=== PATIENT | female | born 1985 | race African-American/Black ===

== ENCOUNTER 2016-07-06 12:10 | Emergency (ER) | payer OTHER ==
[2016-07-06 12:17] VITALS: TEMP 99; BMI 27.6
--- NOTE | 2016-07-06 12:23 | PDOC ---
[id number] is a 31 year old female, with no significant past medical history, who presents to the emergency department with right lower quadrant pain and intermittent nausea for 3 days. She describes the pain as a tightness localized to her right lower quadrant. She denies radiation of pain. She states she usually gets a sharp, constant, cramp to her right lower abdomen before her menstrual cycle, however, this pain is more severe than her prior experiences with the pain. She states she has not eaten since Thursday secondary to nausea. She denies chest pain, shortness of breath, headache and dizziness. She denies fever, chills, vomit, diarrhea and constipation. She denies dysuria, frequency, urgency and hematuria. LMP: 06/27/16 Allergies:NKDA Past surgical history: denies Social history: Pt reports occasional tobacco and alcohol use. <Vernell Fuchs - Last Filed: 07/06/16 15:17> <Shawn Hernandez - Last Filed: 08/17/16 09:52> - General Chief Complaint: Pain Stated Complaint: ABD PAIN, VOMITING Time Seen by Provider: 07/06/16 12:22 Past History <Vernell Fuchs - Last Filed: 07/06/16 15:17> - Past Medical History Other medical history: NONE - Psycho/Social/Smoking Cessation Hx Anxiety: No Suicidal Ideation: No Smoking History: Current every day smoker Number of Cigarettes Smoked Daily: 2 Information on smoking cessation initiated: No Hx Alcohol Use: Yes (RARE) Drug/Substance Use Hx: No Substance Use Type: None <Shawn Hernandez - Last Filed: 08/17/16 09:52> - Past Medical History Allergies/Adverse Reactions: Allergies Allergy/AdvReac Type Severity Reaction Status Date / Time No Known Allergies Allergy Verified 07/06/16 12:17 Home Medications: Ambulatory Orders Ibuprofen 600 mg PO QID PRN #30 tablet 07/06/16 Ondansetron [Zofran *Odt*] 8 mg PO TID PRN #30 tab.rapdis 07/06/16 Ranitidine HCl [Zantac] 150 mg PO DAILY #14 tablet 07/06/16 Review of Systems - Review of Systems Able to Perform ROS?: Yes Comments:: 07/06/16 13:03 GENERAL/CONSTITUTIONAL: No fever or chills. No weakness. HEAD, EYES, EARS, NOSE AND THROAT: No change in vision. No ear pain or discharge. No sore throat. CARDIOVASCULAR: No chest pain or shortness of breath. RESPIRATORY: No cough, wheezing, or hemoptysis. GASTROINTESTINAL:(+) RLQ pain and nausea, No vomiting, diarrhea or constipation. GENITOURINARY: No dysuria, frequency, or change in urination. MUSCULOSKELETAL: No joint or muscle swelling or pain. No neck or back pain. SKIN: No rash NEUROLOGIC: No headache, vertigo, loss of consciousness, or change in strength/ sensation. ENDOCRINE: No increased thirst. No abnormal weight change. HEMATOLOGIC/LYMPHATIC: No anemia, easy bleeding, or history of blood clots. ALLERGIC/IMMUNOLOGIC: No hives or skin allergy. <Vernell Fuchs - Last Filed: 07/06/16 15:17> *Physical Exam - Vital Signs Last Vital Signs Temp Pulse Resp BP Pulse Ox 99.0 F 70 20 120/68 99 07/06/16 12:12 07/06/16 12:12 07/06/16 12:12 07/06/16 12:12 07/06/16 12:12 - Physical Exam Comments: 07/06/16 13:03 GENERAL: Awake, alert, and fully oriented, in no acute distress HEAD: No signs of trauma EYES: PERRLA, EOMI, sclera anicteric, conjunctiva clear ENT: Auricles normal inspection, hearing grossly normal, nares patent, oropharynx clear without exudates. Moist mucosa NECK: Normal ROM, supple, no lymphadenopathy, JVD, or masses LUNGS: Breath sounds equal, clear to auscultation bilaterally. No wheezes, and no crackles HEART: Regular rate and rhythm, normal S1 and S2, no murmurs, rubs or gallops ABDOMEN: (+) RLQ point tenderness to palpation. Soft, normoactive bowel sounds. No guarding, no rebound. No masses EXTREMITIES: Normal range of motion, no edema. No clubbing or cyanosis. No cords, erythema, or tenderness NEUROLOGICAL: Cranial nerves II through XII grossly intact. Normal speech, normal gait SKIN: Warm, Dry, normal turgor, no rashes or lesions noted. <Vernell Fuchs - Last Filed: 07/06/16 15:17> - Vital Signs Last Vital Signs Temp Pulse Resp BP Pulse Ox 99.0 F 70 20 120/68 99 07/06/16 12:12 07/06/16 12:12 07/06/16 12:12 07/06/16 12:12 07/06/16 12:12 <Shawn Hernandez - Last Filed: 08/17/16 09:52> ED Treatment Course - LABORATORY CBC & Chemistry Diagram: 07/06/16 12:50 07/06/16 12:50 - RADIOLOGY Radiograph Interpretation: 07/06/16 15:17 Transvaginal US was read by Dr. Buchanan at 1439 Impression: No right ovarian cyst is noted. 1.4 cm left ovarian cyst. Uterine leiomyomas <Vernell Fuchs - Last Filed: 07/06/16 15:17> - LABORATORY CBC & Chemistry Diagram: 07/06/16 12:50 07/06/16 12:50 <Shawn Hernandez - Last Filed: 08/17/16 09:52> Medical Decision Making - Medical Decision Making 07/06/16 13:05 The patient is a 31 year old female who presents with right lower quadrant pain and intermittent nausea for 3 days. I will obtain ultrasound, urinalysis, cbc, cmp to rule out ovarian cyst and appendicitis <Vernell Fuchs - Last Filed: 07/06/16 15:17> *DC/Admit/Observation/Transfer - Attestations Scribe Attestion: 07/06/16 13:03 Documentation prepared by Vernell Fuchs, acting as biomedical service engineer for Shawn Hernandez MD <Vernell Fuchs - Last Filed: 07/06/16 15:17> - Attestations Physician Attestion: 07/06/16 12:22 I, Dr. Shawn Hernandez, attest that this document has been prepared under my direction and personally reviewed by me in its entirety. I further attest, that it accurately reflects all work, treatment, procedures and medical decision -making performed by me. <Shawn Hernandez - Last Filed: 08/17/16 09:52> Diagnosis at time of Disposition: Nausea Abdominal pain Qualifiers: Abdominal location: right lower quadrant Qualified Code(s): R10.31 - Right lower quadrant pain Ovarian cyst Qualifiers: Laterality: left Qualified Code(s): N83.202 - Unspecified ovarian cyst, left side Leiomyoma of body of uterus Qualifiers: Uterine leiomyoma location: unspecified location Qualified Code(s): D25.9 - Leiomyoma of uterus, unspecified - Discharge Dispostion Disposition: HOME Condition at time of disposition: Good - Prescriptions Prescriptions: Ibuprofen 600 mg PO QID PRN #30 tablet PRN Reason: Pain Ranitidine HCl [Zantac] 150 mg PO DAILY #14 tablet Ondansetron [Zofran *Odt*] 8 mg PO TID PRN #30 tab.rapdis PRN Reason: Nausea - Patient Instructions Additional Instructions: At this time, your symptoms are likely to be related to a 1.4cm LEFT ovarian cyst or possibly fibroid of the uterus; beyond this, no acute findings are noted. Please follow up with your PMD within the next 48 hours and if there is any change otherwise in your symptoms, please return immediately to the ED.
[2016-07-06] MEDS ORDERED: ONDANSETRON *ODT* 4 MG TABLET SL ONE (13:00)
[2016-07-06] MEDS ORDERED: OXYCODONE/APAP 5/325MG COMBO TABLET PO ONE (13:00)
[2016-07-06] MEDS ORDERED: ONDANSETRON *ODT* 4 MG TABLET ONE (13:05)
[2016-07-06] MEDS ORDERED: OXYCODONE/APAP 5/325MG COMBO TABLET ONE (13:05)
[2016-07-06 13:16] LABS: BASOPHIL 0.5 % (0-2.0); EOSINOPHIL 0.5 % (0-4.5); MCH 31.3 pg (25.7-33.7); MCHC 33.5 g/dl (32.0-36.0); MEAN CELL VOLUME 93.4 fl (80-96); MEAN PLT VOLUME 9.9 fl (7.5-11.1); NEUTROPHILS 38.8 % (42.8-82.8); PLATELET COUNT 173 K/MM3 (134-434); RDW 12.3 % (11.6-15.6); WHITE BLOOD COUNT 3.1 K/mm3 (4.0-10.0)
[2016-07-06 13:28] LABS: INR 1.21 (0.82-1.09); PROTHROMBIN TIME (PATIENT) 13.4 SEC (9.98-11.88)
[2016-07-06 13:56] LABS: URINE APPEARANCE CLEAR; URINE BILIRUBIN NEGATIVE (NEGATIVE); URINE BLOOD NEGATIVE (NEGATIVE); URINE COLOR YELLOW; URINE GLUCOSE (UA) NEGATIVE (NEGATIVE); URINE KETONE TRACE (NEGATIVE); URINE LEUK ESTERASE NEGATIVE (NEGATIVE); URINE NITRITE NEGATIVE (NEGATIVE); URINE PROTEIN NEGATIVE (NEGATIVE); URINE UROBILINOGEN 4.0 E.U/dl E.U./dl (0.2-1.0)
[2016-07-06 14:12] LABS: ALBUMIN 3.9 g/dl (3.4-5.0); ALK PHOS 58 U/L (45-117); ANION GAP 8 (8-16); BILIRUBIN,TOTAL 0.4 mg/dL (0.2-1.0); CALCIUM 8.7 mg/dL (8.5-10.1); CO2 30 mmol/L (21-32); CREATININE 0.6 mg/dL (0.55-1.02); GLUCOSE,RANDOM 78 mg/dL (74-106); SGOT/AST 14 U/L (15-37); SGPT/ALT 20 U/L (12-78); TOT PROT 7.4 g/dl (6.4-8.2)
[2016-07-06 17:12] VITALS: BP 111/60; PULSE 63
--- NOTE | 2016-07-06 20:04 | PDOC ---
*Physical Exam - Vital Signs Last Vital Signs Temp Pulse Resp BP Pulse Ox 99.0 F 63 16 111/60 99 07/06/16 12:12 07/06/16 17:11 07/06/16 17:11 07/06/16 17:11 07/06/16 17:11 ED Treatment Course - LABORATORY CBC & Chemistry Diagram: 07/06/16 12:50 07/06/16 12:50 - ADDITIONAL ORDERS Additional order review: Laboratory Results 07/06/16 07/06/16 07/06/16 17:20 12:58 12:50 INR Sodium 142 Potassium 3.5 Chloride 104 Carbon Dioxide 30 Anion Gap 8 BUN 8 Creatinine 0.6 Creat Clearance w eGFR > 60 Random Glucose 78 Calcium 8.7 Total Bilirubin 0.4 AST 14 L ALT 20 Alkaline Phosphatase 58 Total Protein 7.4 Albumin 3.9 Serum , Qual Negative Urine Color Yellow Urine Appearance Clear Urine pH 6.0 Ur Specific [place] 1.024 Urine Protein Negative Urine Glucose (UA) Negative Urine Ketones Trace H Urine Blood Negative Urine Nitrite Negative Urine Bilirubin Negative Urine Urobilinogen 4.0 e.u/dl H Ur Leukocyte Esterase Negative 07/06/16 12:50 INR 1.21 H Sodium Potassium Chloride Carbon Dioxide Anion Gap BUN Creatinine Creat Clearance w eGFR Random Glucose Calcium Total Bilirubin AST ALT Alkaline Phosphatase Total Protein Albumin Serum , Qual Urine Color Urine Appearance Urine pH Ur Specific [place] Urine Protein Urine Glucose (UA) Urine Ketones Urine Blood Urine Nitrite Urine Bilirubin Urine Urobilinogen Ur Leukocyte Esterase 07/06/16 12:50 RBC 4.33 MCV 93.4 MCHC 33.5 RDW 12.3 MPV 9.9 Neutrophils % 38.8 L Lymphocytes % 44.2 H Monocytes % 16.0 H Eosinophils % 0.5 Basophils % 0.5 - Medications Given in the ED: ED Medications Discontinued Medications Generic Name Dose Route Start Last Admin Trade Name Freq PRN Reason Stop Dose Admin Ondansetron HCl 8 mg 07/06/16 13:00 07/06/16 13:05 Zofran Odt - SL 07/06/16 13:01 8 mg ONCE ONE Administration Oxycodone/Acetaminophen 2 combo 07/06/16 13:00 07/06/16 13:05 Percocet 5/325 - PO 07/06/16 13:01 2 combo ONCE ONE Administration Medical Decision Making - Medical Decision Making 07/06/16 20:03 The patient is received on sign out comfortable; CT shows no acute pathology and corroborates the findings of the US with fibroid and 1.4cm LEFT sided ovarian cyst. She is given analgesia, encouraged to follow up with the PMD within the next 24 hours. 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, I have also encouraged GI follow up for possible *DC/Admit/Observation/Transfer Diagnosis at time of Disposition: Nausea Abdominal pain Qualifiers: Abdominal location: right lower quadrant Qualified Code(s): R10.31 - Right lower quadrant pain Ovarian cyst Qualifiers: Laterality: left Qualified Code(s): N83.202 - Unspecified ovarian cyst, left side Leiomyoma of body of uterus Qualifiers: Uterine leiomyoma location: unspecified location Qualified Code(s): D25.9 - Leiomyoma of uterus, unspecified - Discharge Dispostion Disposition: HOME Condition at time of disposition: Good Admit: No Decision to Admit order Date/Time: 07/06/16 19:58 - Prescriptions Prescriptions: Ibuprofen 600 mg PO QID PRN #30 tablet PRN Reason: Pain Ranitidine HCl [Zantac] 150 mg PO DAILY #14 tablet Ondansetron [Zofran *Odt*] 8 mg PO TID PRN #30 tab.rapdis PRN Reason: Nausea - Patient Instructions Additional Instructions: At this time, your symptoms are likely to be related to a 1.4cm LEFT ovarian cyst or possibly fibroid of the uterus; beyond this, no acute findings are noted. Please follow up with your PMD within the next 48 hours and if there is any change otherwise in your symptoms, please return immediately to the ED.
== END 2016-07-06 20:24 | disposition home or self-care (01) ==
LOC: JER 12:10
DX: N83.202 Unspecified ovarian cyst, left side (principal); D25.9 Leiomyoma of uterus, unspecified
CPT/HCPCS: 36415; 74177-TC; 76830-TC; 80053; 81003; 84703; 85025; 85610; 87086; 99282-25